=== PATIENT | male | born 1935 | race Caucasian/White ===

== ENCOUNTER 2016-07-08 10:17 | Day surgery (SDC) | payer MEDICARE ==
[~2016-07-08 10:17] MED LIST: ACETAMINOPHEN 325 MG TABLET PO PRN; ACETYLCHOLINE CHLORIDE 20 DROP KIT IO PRN; BUPIVACAINE HCL/PF 30 ML VIAL IJ PRN; CYCLOPENTOLATE HCL 20 DROP BTL RIGHTEYE PRN; DEXTROSE 5%-0.5 NORMAL SALINE 1,000 ML IV PRN; EPINEPHrine 1 MG/ML AMPUL IO PRN; HYALURONATE SODIUM 0.4 ML DISP.SYRIN IO PRN; HYALURONATE SODIUM 0.85 ML DISP.SYRIN IO PRN; LIDOCAINE HCL/PF 200 MG/5 ML AMPUL TP PRN; LIDOCAINE HCL/PF 5 ML VIAL IO PRN; NORMAL SALINE 3 ML BOX IV PRN; TETRACAINE HCL 150 DROP BTL OP PRN
--- OUTSIDE RECORDS SUMMARY | 2016-07-08 10:21 | XMS REPORT | Summary of Care ---
:1935 Author Organization [facility] Address [address] [place] [id number] Care Team Providers Name Role Phone Jacinto Hardy Primary Care Physician Encounter Date(s): 06/20/16 - 06/20/[address] [address] [facility] Discharge Diagnosis: Hypercholesterolemia Discharge Diagnosis: Cataracts, bilateral Discharge Diagnosis: Preoperative clearance Discharge Diagnosis: Type 2 diabetes mellitus without complications Discharge Diagnosis: Decreased blood pressure Discharge Disposition: 01 Discharged to Home or Self Care Attending Physician: Jacinto Hardy DO Referring Physician: Jacinto Hardy DO Vital Signs Most recent to oldest [Reference Range]: 1 Peripheral Pulse Rate [60-100 bpm] 67 bpm (06/20/16 9:09 AM) SpO2 94 % (06/20/16 9:09 AM) Blood Pressure [90-130/60-90 mmHg] 82/52mmHg *LOW* (06/20/16 9:09 AM) Mean Arterial Pressure, Cuff 62 mmHg (06/20/16 9:09 AM) Most recent to oldest [Reference Range]: 1 Height/Length Measured 155 cm (06/20/16 9:09 AM) Weight Dosing 61.6 kg (06/20/16 9:09 AM) Weight Measured 61.6 kg (06/20/16 9:09 AM) BSA Measured 1.6 m2 (06/20/16 9:09 AM) Body Mass Index Measured 25.64 kg/m2 (06/20/16 9:09 AM) Problem List Condition Effective Dates Status Health Status Informant Arthropathy(Confirmed) Active Carpal tunnel syndrome(Confirmed) 2010 Active Cellulitis-lt arm(Confirmed) 1996 Active Degenerative arthritis(Confirmed) Active DM - Diabetes mellitus II(Confirmed) Active lt Elbow fracture(Confirmed) 1980 Active Hypercholesterolemia(Confirmed) Active Hyperlipidemia(Confirmed) Active Inguinal hernia with Active incarceration(Confirmed) hx of Tubular adenoma(Confirmed) 2004 Active Allergies, Adverse Reactions, Alerts No Known Allergies Medications Amaryl 4 mg oral tablet 1 tab(s), Oral, Daily, # 90 tab(s), 3 Refill(s), Start Date: 01/02/15 11:47:21 CDT, Pharmacy: [facility] Start Date: 01/02/15 Stop Date: 06/20/16 Status: DiscontinuedAmaryl 4 mg oral tablet 1 tab(s), Oral, Daily, # 30 tab(s), 11 Refill(s), Start Date: 03/25/14 13:36:07 CLEANER Start Date: 03/25/14 Stop Date: 03/25/14 Status: CompletedAmaryl 4 mg oral tablet 1 tab(s), Oral, Daily, # 90 tab(s), 3 Refill(s), Start Date: 03/25/14 13:40:55 CLEANER Start Date: 03/25/14 Stop Date: 01/02/15 Status: CompletedAmaryl 4 mg oral tablet 1 tab(s), Oral, Daily, # 90 tab(s), 4 Refill(s), Start Date: 11/09/13 8:38:00 CDT, other reason (Rx) Start Date: 11/09/13 Stop Date: 03/25/14 Status: Completedaspirin 81 mg oral delayed release tablet 1 tab(s), Oral, Daily, 0 Refill(s) Start Date: 12/30/13 Status: OrderedCortisporin otic suspension 4 drop(s), Ear-Left, BID, # 10 mL, 0 Refill(s), Start Date: 06/20/16 9:56:00 CLEANER , Pharmacy: [facility] Start Date: 06/20/16 Stop Date: 06/20/16 Status: DiscontinuedFreestyle Lite Test Strips 3 Month Supply, Subcutaneous, Daily, DX: 250.00, # 1 QS, 3 Refill(s), Pharmacy: [facility], Supply Special Instructions: DX: 250.00 Start Date: 02/15/14 Status: Orderedlovastatin 10 mg oral tablet 1 tab(s), Oral, Daily, # 90 tab(s), 0 Refill(s), Start Date: 01/02/15 11:43:00 CDT Start Date: 01/02/15 Stop Date: 01/02/15 Status: Discontinuedlovastatin 10 mg oral tablet 1 tab(s), Oral, Daily, # 90 tab(s), 0 Refill(s), Pharmacy: [facility] Start Date: 02/15/14 Stop Date: 03/25/14 Status: Discontinuedlovastatin 10 mg oral tablet 1 tab(s), Oral, Daily, # 30 tab(s), 3 Refill(s), Start Date: 01/02/15 11:48:00 CDT, Pharmacy: [facility] Start Date: 01/02/15 Stop Date: 06/20/16 Status: DiscontinuedLOVASTATIN 10MG TAB See Instructions, TAKE ONE TABLET BY MOUTH ONCE DAILY, unknown unit, # 90, eRx: [facility] Special Instructions: TAKE ONE TABLET BY MOUTH ONCE DAILY Start Date: 11/03/14 Stop Date: 01/02/15 Status: Completedlovastatin 20 mg oral tablet 1 tab(s), Oral, Daily, 0 Refill(s) Start Date: 12/30/13 Stop Date: 02/15/14 Status: DiscontinuedmetFORMIN 1000 mg oral tablet 1 tab(s), Oral, BID, # 60 tab(s), 11 Refill(s), Start Date: 03/25/14 13:35:44 CLEANER Start Date: 03/25/14 Stop Date: 03/25/14 Status: CompletedmetFORMIN 1000 mg oral tablet 1 tab(s), Oral, BID, # 180 tab(s), 4 Refill(s), Start Date: 09/19/14 16:32:26 CDT, Pharmacy: [facility] Start Date: 09/19/14 Stop Date: 06/20/16 Status: DiscontinuedmetFORMIN 1000 mg oral tablet 1 tab(s), Oral, BID, # 180 tab(s), 4 Refill(s), Start Date: 09/10/13 16:39:00 CDT Start Date: 09/10/13 Stop Date: 03/25/14 Status: CompletedmetFORMIN 1000 mg oral tablet 1 tab(s), Oral, BID, # 180 tab(s), 3 Refill(s), Start Date: 03/25/14 13:40:18 CLEANER Start Date: 03/25/14 Stop Date: 09/19/14 Status: CompletedmetFORMIN 1000 mg oral tablet See Instructions, TAKE ONE TABLET BY MOUTH TWICE DAILY, unknown unit, 4 Refill(s ), # 180, eRx: [facility] Special Instructions: TAKE ONE TABLET BY MOUTH TWICE DAILY Start Date: 09/19/14 Stop Date: 06/20/16 Status: Discontinuedsimvastatin 10 mg oral tablet 1 tab(s), Oral, HS, # 30 tab(s), 11 Refill(s), Start Date: 03/25/14 13:34:00 CLEANER Start Date: 03/25/14 Stop Date: 03/25/14 Status: Completedsimvastatin 10 mg oral tablet 1 tab(s), Oral, HS, # 90 tab(s), 3 Refill(s), Start Date: 03/25/14 13:40:00 CLEANER Start Date: 03/25/14 Stop Date: 01/02/15 Status: Completedterazosin 5 mg oral capsule 1 cap(s), Oral, Daily, 0 Refill(s) Start Date: 12/30/13 Stop Date: 05/11/14 Status: Discontinuedterazosin 5 mg oral capsule See Instructions, TAKE ONE CAPSULE BY MOUTH ONCE DAILY, cap(s), 4 Refill(s), # 90, eRx: [facility] Special Instructions: TAKE ONE CAPSULE BY MOUTH ONCE DAILY Start Date: 05/08/15 Stop Date: 06/20/16 Status: Discontinuedterazosin 5 mg oral capsule 1 cap(s), Oral, Daily, # 90 cap(s), 4 Refill(s), Start Date: 06/20/16 13:12:49 CLEANER, Pharmacy: [facility] Start Date: 06/20/16 Status: Orderedterazosin 5 mg oral capsule 1 cap(s), Oral, Daily, # 90 cap(s), 3 Refill(s), Start Date: 05/11/14 11:50:00 CLEANER, Pharmacy: [facility] Start Date: 05/11/14 Stop Date: 06/20/16 Status: Discontinued Results Patient Viewable Results Most recent to oldest [Reference Range]: 1 WBC [4.8-10.8 thou/mm3] 7.8 thou/mm3 (06/20/16 9:59 AM) RBC [4.60-6.00 Mil/mm3] 4.74 Mil/mm3 (06/20/16 9:59 AM) Hgb [14.0-17.9 g/dL] 14.9 g/dL (06/20/16 9:59 AM) Hct [42.0-52.0 %] 43.6 % (06/20/16 9:59 AM) MCV [80.0-94.0 fL] 92.0 fL (06/20/16 9:59 AM) MCH [25.0-38.0 pg/cell] 31.4 pg/cell (06/20/16 9:59 AM) MCHC [31.0-37.0 g/dL] 34.2 g/dL (06/20/16 9:59 AM) RDW [11.6-14.8 %] 11.9 % (06/20/16 9:59 AM) Platelet [130-400 thou/mm3] 162 thou/mm3 (06/20/16 9:59 AM) MPV [0.0-99.8 fL] 10.3 fL (06/20/16 9:59 AM) Sodium Lvl [136-145 mmol/L] 139 mmol/L (06/20/16 9:59 AM) Potassium Lvl [3.5-5.1 mmol/L] 4.3 mmol/L (06/20/16 9:59 AM) Chloride Lvl [98-107 mmol/L] 102 mmol/L (06/20/16 9:59 AM) Bicarbonate Lvl [21-32 mmol/L] 26 mmol/L (06/20/16 9:59 AM) Anion Gap [12-19] 15 (06/20/16 9:59 AM) Glucose Lvl [74-106 mg/dL] 394 mg/dL *HI* (06/20/16 9:59 AM) BUN [7-18 mg/dL] 24 mg/dL *HI* (06/20/16 9:59 AM) Creatinine Lvl [0.70-1.30 mg/dL] 1.20 mg/dL (06/20/16 9:59 AM) BUN/Creat Ratio 20 *NA* (06/20/16 9:59 AM) eGFR AA [>=60] >60 (06/20/16 9:59 AM) eGFR FELICE [>=60] 58 *LOW* (06/20/16 9:59 AM) Calcium Lvl [8.5-10.1 mg/dL] 9.6 mg/dL (06/20/16 9:59 AM) Total Protein [6.4-8.2 g/dL] 7.1 g/dL (06/20/16 9:59 AM) Albumin Lvl [3.4-5.0 g/dL] 3.9 g/dL (06/20/16 9:59 AM) Globulin 3 g/dL *NA* (06/20/16 9:59 AM) A/G Ratio [1.0-2.0] 1.2 (06/20/16 9:59 AM) Bilirubin Total [0.2-1.0 mg/dL] 0.7 mg/dL (06/20/16 9:59 AM) Alkaline Phosphatase [46-116 unit/L] 55 unit/L (06/20/16 9:59 AM) AST [15-37 unit/L] 14 unit/L *LOW* (06/20/16 9:59 AM) ALT [16-63 unit/L] 24 unit/L (06/20/16 9:59 AM) Glycated Hemoglobin [4.5-6.2 %] 8.5 % *HI* (06/20/16 9:59 AM) Estimated Average Glucose [64-120 mg/dL] 197 mg/dL *HI* (06/20/16 9:59 AM) Cholesterol Total [0-200 mg/dL] 212 mg/dL *HI* (06/20/16 9:59 AM) Triglyceride [0-200 mg/dL] 161 mg/dL (06/20/16 9:59 AM) HDL Cholesterol [40-60 mg/dL] 53 mg/dL (06/20/16 9:59 AM) LDL Cholesterol (Direct) [0-130 mg/dL] 127 mg/dL (06/20/16 9:59 AM) Non HDL Cholesterol [0-160 mg/dL] 159 mg/dL (06/20/16 9:59 AM) TSH [0.36-3.74 mIU/L] 1.36 mIU/L (06/20/16 9:59 AM) Immunizations No data available for this section Procedures Procedure Date Related Diagnosis Body Site Exercise stress test1 08/07/12 Colonoscopy2 09/24/11 inguinal Hernia repair 09/21/10 Carpal tunnel release, bilateral 09/19/10 Colonoscopy3 02/17/04 [id number] adenoma Social History No data available for this section Assessment and Plan No data available for this section
--- OUTSIDE RECORDS SUMMARY | 2016-07-08 10:21 | XMS REPORT | Summary of Care ---
:1935 Author Organization [facility] Address [address] [place] [address]- Care Team Providers Name Role Phone Jacinto Hardy Primary Care Physician Encounter Date(s): 06/27/16 - 06/27/16 [facility] [address] [place] [address]- [facility] Discharge Disposition: 01 Discharged to Home or Self Care Attending Physician: Mathew Adames MD Admitting Physician: Mathew Adames MD Vital Signs Most recent to oldest [Reference 1 2 3 Range]: Temperature Temporal Artery [36-38 36.2 DegC 36.3 DegC DegC] (06/27/16 8:00 AM) (06/27/16 7:45 AM) Temperature Temporal Artery 36.4 DegC [36.0-38.0 DegC] (06/27/16 5:55 AM) Heart Rate Monitored [60-100 bpm] 89 bpm 91 bpm 69 bpm (06/27/16 8:00 AM) (06/27/16 7:45 AM) (06/27/16 5:55 AM) Respiratory Rate [12-20 br/min] 16 br/min 16 br/min 18 br/min (06/27/16 8:00 AM) (06/27/16 7:45 AM) (06/27/16 5:55 AM) SpO2 94 % 93 % 97 % (06/27/16 8:00 AM) (06/27/16 7:45 AM) (06/27/16 5:55 AM) SpO2 Location Left hand Right hand (06/27/16 8:00 AM) (06/27/16 7:45 AM) Blood Pressure [90-130/60-90 mmHg] 126/68mmHg 99/68mmHg 123/76mmHg (06/27/16 8:00 AM) (06/27/16 7:45 AM) (06/27/16 5:55 AM) Blood Pressure Location Left arm Right arm (06/27/16 8:00 AM) (06/27/16 7:45 AM) Most recent to oldest [Reference Range]: 1 2 3 Height/Length Measured 160 cm (06/27/16 5:55 AM) Height/Length Estimated 160.02 cm 160.02 cm (06/27/16 5:55 AM) (06/25/16 2:16 PM) Weight Estimated 61.0 kg 61.2 kg (06/27/16 5:55 AM) (06/25/16 2:16 PM) Weight Dosing 61.0 kg (06/27/16 5:55 AM) Weight Measured 61.0 kg (06/27/16 5:55 AM) BSA Measured 1.63 m2 (06/27/16 5:55 AM) BSA Estimated 1.65 m2 (06/27/16 5:55 AM) Body Mass Index Measured 23.83 kg/m2 (06/27/16 5:55 AM) Body Mass Index Estimated 23.82 kg/m2 (06/27/16 5:55 AM) Problem List Condition Effective Dates Status Health Status Informant Arthropathy(Confirmed) Active Carpal tunnel syndrome(Confirmed) 2010 Active Cellulitis-lt arm(Confirmed) 1996 Active Degenerative arthritis(Confirmed) Active DM - Diabetes mellitus II(Confirmed) Active lt Elbow fracture(Confirmed) 1980 Active Hypercholesterolemia(Confirmed) Active Hyperlipidemia(Confirmed) Active Inguinal hernia with Active incarceration(Confirmed) hx of Tubular adenoma(Confirmed) 2003 Active Allergies, Adverse Reactions, Alerts No Known Allergies Medications Amaryl 4 mg oral tablet 1 tab(s), Oral, Daily, # 90 tab(s), 3 Refill(s), Start Date: 01/02/15 11:47:21 CDT, Pharmacy: [facility] Start Date: 01/02/15 Stop Date: 06/20/16 Status: DiscontinuedAmaryl 4 mg oral tablet 1 tab(s), Oral, Daily, # 30 tab(s), 11 Refill(s), Start Date: 03/25/14 13:36:07 HERB GROWER Start Date: 03/25/14 Stop Date: 03/25/14 Status: CompletedAmaryl 4 mg oral tablet 1 tab(s), Oral, Daily, # 90 tab(s), 3 Refill(s), Start Date: 03/25/14 13:40:55 HERB GROWER Start Date: 03/25/14 Stop Date: 01/02/15 Status: CompletedAmaryl 4 mg oral tablet 1 tab(s), Oral, Daily, # 30 tab(s), 11 Refill(s), Start Date: 06/24/16 15:06:00 HERB GROWER, Pharmacy: [place] [id number] Start Date: 06/24/16 Status: OrderedAmaryl 4 mg oral tablet 1 tab(s), Oral, Daily, # 90 tab(s), 4 Refill(s), Start Date: 11/09/13 8:38:00 CDT, other reason (Rx) Start Date: 11/09/13 Stop Date: 03/25/14 Status: Completedaspirin 81 mg oral delayed release tablet 1 tab(s), Oral, Daily, 0 Refill(s), Start Date: 12/30/13 13:37:00 CDT Start Date: 12/30/13 Status: OrderedCortisporin otic suspension 4 drop(s), Ear-Left, BID, # 10 mL, 0 Refill(s), Start Date: 06/20/16 9:56:00 HERB GROWER , Pharmacy: [place] [id number] Start Date: 06/20/16 Stop Date: 06/20/16 Status: DiscontinuedFreestyle Lite Test Strips 3 Month Supply, Subcutaneous, Daily, DX: 250.00, # 1 QS, 3 Refill(s), Pharmacy: [place] [address], Supply Special Instructions: DX: 250.00 Start Date: 02/15/14 Status: Orderedlovastatin 10 mg oral tablet 1 tab(s), Oral, Daily, # 90 tab(s), 0 Refill(s), Start Date: 01/02/15 11:43:00 CDT Start Date: 01/02/15 Stop Date: 01/02/15 Status: Discontinuedlovastatin 10 mg oral tablet 1 tab(s), Oral, Daily, # 90 tab(s), 0 Refill(s), Pharmacy: [facility] [id number] Start Date: 02/15/14 Stop Date: 03/25/14 Status: Discontinuedlovastatin 10 mg oral tablet 1 tab(s), Oral, Daily, # 30 tab(s), 3 Refill(s), Start Date: 01/02/15 11:48:00 CDT, Pharmacy: [place] [facility] [id number] Start Date: 01/02/15 Stop Date: 06/20/16 Status: DiscontinuedLOVASTATIN 10MG TAB See Instructions, TAKE ONE TABLET BY MOUTH ONCE DAILY, unknown unit, # 90, eRx: [place] [id number] Special Instructions: TAKE ONE TABLET BY MOUTH ONCE DAILY Start Date: 11/03/14 Stop Date: 01/02/15 Status: Completedlovastatin 20 mg oral tablet 1 tab(s), Oral, Daily, 0 Refill(s) Start Date: 12/30/13 Stop Date: 02/15/14 Status: DiscontinuedmetFORMIN 1000 mg oral tablet 1 tab(s), Oral, BID, # 60 tab(s), 11 Refill(s), Start Date: 03/25/14 13:35:44 HERB GROWER Start Date: 03/25/14 Stop Date: 03/25/14 Status: CompletedmetFORMIN 1000 mg oral tablet 1 tab(s), Oral, BID, # 180 tab(s), 4 Refill(s), Start Date: 09/19/14 16:32:26 CDT, Pharmacy: [facility] [id number] Start Date: 09/19/14 Stop Date: 06/20/16 Status: DiscontinuedmetFORMIN 1000 mg oral tablet 1 tab(s), Oral, BID, # 180 tab(s), 4 Refill(s), Start Date: 09/10/13 16:39:00 CDT Start Date: 09/10/13 Stop Date: 03/25/14 Status: CompletedmetFORMIN 1000 mg oral tablet 1 tab(s), Oral, BID, # 180 tab(s), 3 Refill(s), Start Date: 03/25/14 13:40:18 HERB GROWER Start Date: 03/25/14 Stop Date: 09/19/14 Status: CompletedmetFORMIN 1000 mg oral tablet See Instructions, TAKE ONE TABLET BY MOUTH TWICE DAILY, unknown unit, 4 Refill(s ), # 180, eRx: [place] [id number] Special Instructions: TAKE ONE TABLET BY MOUTH TWICE DAILY Start Date: 09/19/14 Stop Date: 06/20/16 Status: Discontinuedsimvastatin 10 mg oral tablet 1 tab(s), Oral, HS, # 30 tab(s), 11 Refill(s), Start Date: 03/25/14 13:34:00 HERB GROWER Start Date: 03/25/14 Stop Date: 03/25/14 Status: Completedsimvastatin 10 mg oral tablet 1 tab(s), Oral, HS, # 90 tab(s), 3 Refill(s), Start Date: 03/25/14 13:40:00 HERB GROWER Start Date: 03/25/14 Stop Date: 01/02/15 Status: Completedterazosin 5 mg oral capsule 1 cap(s), Oral, Daily, 0 Refill(s) Start Date: 12/30/13 Stop Date: 05/11/14 Status: Discontinuedterazosin 5 mg oral capsule See Instructions, TAKE ONE CAPSULE BY MOUTH ONCE DAILY, cap(s), 4 Refill(s), # 90, eRx: [facility] Special Instructions: TAKE ONE CAPSULE BY MOUTH ONCE DAILY Start Date: 05/08/15 Stop Date: 06/20/16 Status: Discontinuedterazosin 5 mg oral capsule 1 cap(s), Oral, Daily, # 90 cap(s), 4 Refill(s), Start Date: 06/20/16 13:12:49 HERB GROWER, Pharmacy: [facility] Start Date: 06/20/16 Status: Orderedterazosin 5 mg oral capsule 1 cap(s), Oral, Daily, # 90 cap(s), 3 Refill(s), Start Date: 05/11/14 11:50:00 HERB GROWER, Pharmacy: [facility] Start Date: 05/11/14 Stop Date: 06/20/16 Status: Discontinued Results Patient Viewable Results Most recent to oldest [Reference 1 2 3 Range]: AN - Fi O2 44 % % 45 % % 41 % % (06/27/16 7:40 AM) (06/27/16 7:35 AM) (06/27/16 7:30 AM) Estimated Creatinine Clearance 39.50 mL/min (06/27/16 5:58 AM) Whole Blood Glucose [70-108 mg/dL] 88 mg/dL1 134 mg/dL2 234 mg/dL3 (2/9/17 7:49 AM) *HI* *HI* (06/27/16 6:51 AM) (06/27/16 5:49 AM) 1Result Comment: Voice And Data Technician: [id number] Hancock [id number] Comment: Voice And Data Technician: [id number] Tang [id number] Comment: Voice And Data Technician: [id number] Tang CHANGE MANAGEMENT DIRECTOR Immunizations No data available for this section Procedures Procedure Date Related Diagnosis Body Site Cataract Extraction With Lens Implant (Left)1 06/27/16 Exercise stress test2 08/07/12 Colonoscopy3 09/24/11 inguinal Hernia repair 09/21/10 Carpal tunnel release, bilateral 09/19/10 Colonoscopy4 02/17/04 1auto-populated from documented surgical [id number] adenoma Social History No data available for this section Assessment and Plan No data available for this section
[2016-07-08] MEDS: PHENYLEPHRINE HCL 50 DROP BTL RIGHTEYE PRN ×3 (10:45→11:15)
[2016-07-08] MEDS: TROPICAMIDE 150 DROP BTL RIGHTEYE PRN ×3 (10:45→11:15)
[2016-07-08] MEDS ORDERED: RINGERS SOLUTION,LACTATED 1,000 ML IV ONE (11:00)
[2016-07-08 13:31] VITALS: BP 130/78
== END 2016-07-08 10:18 | disposition home or self-care (01) ==
LOC: AMB 10:17
PROVIDERS: ATTEND Ophthalmology
PROC: 08RJ3JZ Replacement of Right Lens with Synthetic Substitute, Percutaneous Approach (ICD-10-PCS; principal; 2016-07-08 11:20)
DX: H26.9 Unspecified cataract (principal); E11.9 Type 2 diabetes mellitus without complications; E78.00 Pure hypercholesterolemia, unspecified; Z68.26 Body mass index [BMI] 26.0-26.9, adult